=== PATIENT | female | born 1950 | race African-American/Black ===

== ENCOUNTER → 2019-07-12 | Outpatient (CLI) | payer MEDICARE, MEDICAID | END | disposition home or self-care (01) | LOC: RAD 12:42 | PROVIDERS: ATTEND Neurological Surgery | DX: R07.9 Chest pain, unspecified (principal) | CPT/HCPCS: 71045 ==

== ENCOUNTER 2019-07-22 05:23 | Inpatient (IN) | payer MEDICARE, MEDICAID ==
[2019-07-22] VITALS (52 sets, daily range): BP systolic 95–166; BP diastolic 46–88
[~2019-07-22] VITALS: Ht 157.5 cm; Wt 88.5 kg
[~2019-07-22 05:23] MED LIST: ALBU18HF2 IH; ATOR40TA70 PO; ATROV INH; CHLO25TA2 MT; HYDR-4001 PO; HYDR100T26 PO; LISI40TA4 PO; METF-414 PO; METH10TA7 PO
[2019-07-22] MEDS ORDERED: BACITRACIN 50,000 UNITS/VIAL ONE (06:16)
[2019-07-22] MEDS ORDERED: LIDOCAINE HCL/EPINEPHRINE 1%-EPI 1:100,000 20 ML VIAL ONE (06:16)
[2019-07-22] MEDS ORDERED: THROMBIN (BOVINE) 5000 UNITS/VIAL TOP ONE (06:16)
[2019-07-22 06:20] LABS: CLARITY URINE CLOUDY (CLEAR); COLOR URINE YELLOW (YELLOW); KETONES URINE NEGATIVE (NEGATIVE); LEUKOCYTE ESTERASE URINE TRACE (NEGATIVE); NITRITE URINE NEGATIVE (NEGATIVE); OCCULT BLOOD URINE NEGATIVE (NEGATIVE); PH URINE 7.5 (4.5-8.0); PROTEIN URINE TRACE (NEGATIVE); SPECIFIC GRAVITY URINE 1.009 (1.005-1.030); UROBILINOGEN URINE 0.2 E.U./dL (0.2-1.0)
[2019-07-22 06:26] LABS: BASOPHILS % 0.4 % (0.0-2.0); CHLORIDE 101 mEq/L (98-107); HEMATOCRIT. 41.4 % (36.0-48.0); HEMOGLOBIN. 13.5 g/dL (12.0-16.0); MEAN CORPUSCULAR HEMOGLOBIN 26.4 pg (28.0-32.0); MEAN CORPUSCULAR VOLUME 80.7 fL (81.0-99.0); MEAN PLATELET VOLUME 7.2 fl (7.4-10.4); MONOCYTES % 9.2 % (2.0-8.0); NEUTROPHILS % 55.4 % (40.0-76.0); PLATELET 335 x1000/uL (130-400); RED BLOOD CELL COUNT 5.13 mill/uL (4.2-5.4); RED CELL DISTRIBUTION WIDTH 13.9 % (11.6-14.6)
[2019-07-22 06:29] LABS: PARTIAL THROMBOPLASTIN TIME 27.5 sec (23.4-31.0)
[2019-07-22] MEDS ORDERED: ROCURONIUM BROMIDE 10MG/ML VIAL 5ML IV ONE (07:06)
[2019-07-22] MEDS ORDERED: FENTANYL CITRATE/PF 50MCG/ML 2ML VIAL ONE ×2 (07:06→09:21)
[2019-07-22] MEDS ORDERED: NEOSTIGMINE METHYLSULFATE 1MG/ML 10 ML VIAL ONE (07:06)
[2019-07-22] MEDS ORDERED: PROPOFOL 200MG/20ML VIAL IV ONE (07:07)
[2019-07-22] MEDS ORDERED: GLYCOPYRROLATE 0.2 MG/ML 2ML VIAL ONE ×2 (07:07→10:16)
[2019-07-22] MEDS ORDERED: MIDAZOLAM HCL 2 MG/2 ML VIAL ONE (07:07)
[2019-07-22] MEDS ORDERED: DEXAMETHASONE 4MG/ML 1ML VIAL ONE (07:09)
[2019-07-22] MEDS ORDERED: ONDANSETRON HCL 4MG/2ML INJ IV PRN ×2 (07:15→11:45)
[2019-07-22] MEDS ORDERED: HYDROMORPHONE HCL/PF 2MG/ML (OR) ONE (07:54)
[2019-07-22] MEDS ORDERED: LACTATED RINGERS 500 ML IV SCH (11:30)
[2019-07-22] MEDS: DEXT 5%/LACTATED RINGERS 1,000 ML IV SCH ×2 (11:37→20:01)
[2019-07-22] MEDS: NICARDIPINE 100 MG in SODIUM CHLORIDE 0.9% 60 ML IV PRN (11:45)
[2019-07-22] MEDS ORDERED: ONDANSETRON INJ IV PRN (11:45)
[2019-07-22] MEDS ORDERED: NALOXONE INJ IV PRN (11:45)
[2019-07-22] MEDS ORDERED: IPRATROPIUM/ALBUTEROL 0.5-3(2.5)MG/3ML NEB HHN PRN (11:45)
[2019-07-22] MEDS ORDERED: ACETAMINOPHEN 325MG TABLET PO PRN (11:45)
[2019-07-22] MEDS: DIPHENHYDRAMINE INJ IV PRN (11:52)
[2019-07-22] MEDS ORDERED: CEFAZOLIN SODIUM 1000MG/VIAL IV SCH (14:00)
[2019-07-22] MEDS: HYDROMORPHONE PCA 10MG/50ML IV PRN (14:11)
[2019-07-22] MEDS: CEFAZOLIN 1000MG PREMIX 50 ML IV SCH ×2 (14:13→22:08)
[2019-07-23] VITALS (103 sets, daily range): BP systolic 76–166; BP diastolic 41–129
[2019-07-23] MEDS: DEXT 5%/LACTATED RINGERS 1,000 ML IV SCH ×3 (03:30→17:54)
[2019-07-23] MEDS: CEFAZOLIN 1000MG PREMIX 50 ML IV SCH ×3 (05:56→21:19)
[2019-07-23 06:18] LABS: CHLORIDE 101 mEq/L (98-107)
[2019-07-23 06:21] LABS: BASOPHILS % 0.1 % (0.0-2.0); EOSINOPHILS % 0.1 % (0.0-5.0); HEMATOCRIT. 31.7 % (36.0-48.0); HEMOGLOBIN. 10.1 g/dL (12.0-16.0); LYMPHOCYTES % 14.9 % (20.0-50.0); MEAN CORPUSCULAR HEMOGLOBIN 25.8 pg (28.0-32.0); MEAN CORPUSCULAR VOLUME 80.9 fL (81.0-99.0); MEAN PLATELET VOLUME 7.3 fl (7.4-10.4); MONOCYTES % 11.1 % (2.0-8.0); NEUTROPHILS % 73.8 % (40.0-76.0); PLATELET 283 x1000/uL (130-400); RED BLOOD CELL COUNT 3.92 mill/uL (4.2-5.4); RED CELL DISTRIBUTION WIDTH 13.6 % (11.6-14.6)
[2019-07-23 06:27] LABS: HDL CHOLESTEROL 36 mg/dL (40-59); LDL CHOLESTEROL 83 mg/dL (5-100)
[2019-07-23] MEDS: HYDROMORPHONE HCL/PF 2MG/ML CPJ IV PRN ×5 (07:48→22:13)
[2019-07-23] MEDS ORDERED: SODIUM CHLORIDE 0.9% 500 ML IV SCH (08:30)
[2019-07-23] MEDS: NICARDIPINE 100 MG in SODIUM CHLORIDE 0.9% 60 ML IV PRN (08:59)
[2019-07-23] MEDS: POTASSIUM CHLORIDE 20MEQ/PACKET PO NR ×2 (12:15→13:19)
[2019-07-23] MEDS ORDERED: POTASSIUM CHLORIDE 20MEQ TABLET SR PO NR (17:40)
[2019-07-23] MEDS: HYDROMORPHONE PCA 10MG/50ML IV PRN (19:46)
[2019-07-23] MEDS: DIPHENHYDRAMINE INJ IV PRN (20:53)
[2019-07-23] MEDS: ATORVASTATIN CALCIUM 40MG TABLET PO SCH (20:53)
[2019-07-24] VITALS (77 sets, daily range): BP systolic 92–170; BP diastolic 38–120
[2019-07-24] MEDS: DIPHENHYDRAMINE INJ IV PRN ×2 (02:12→09:29)
[2019-07-24] MEDS: NICARDIPINE 100 MG in SODIUM CHLORIDE 0.9% 60 ML IV PRN ×2 (02:14→11:20)
[2019-07-24] MEDS: DEXT 5%/LACTATED RINGERS 1,000 ML IV SCH (02:14)
[2019-07-24] MEDS: HYDROMORPHONE HCL/PF 2MG/ML CPJ IV PRN ×5 (02:16→20:36)
[2019-07-24 05:47] LABS: BASOPHILS % 0.1 % (0.0-2.0); EOSINOPHILS % 0.7 % (0.0-5.0); HEMATOCRIT. 30.3 % (36.0-48.0); HEMOGLOBIN. 10.1 g/dL (12.0-16.0); LYMPHOCYTES % 17.8 % (20.0-50.0); MEAN CORPUSCULAR HEMOGLOBIN 26.5 pg (28.0-32.0); MEAN PLATELET VOLUME 7.6 fl (7.4-10.4); MONOCYTES % 11.2 % (2.0-8.0); NEUTROPHILS % 70.2 % (40.0-76.0); PLATELET 274 x1000/uL (130-400); RED BLOOD CELL COUNT 3.79 mill/uL (4.2-5.4); RED CELL DISTRIBUTION WIDTH 13.6 % (11.6-14.6)
[2019-07-24 05:56] LABS: CHLORIDE 99 mEq/L (98-107)
[2019-07-24] MEDS: CEFAZOLIN 1000MG PREMIX 50 ML IV SCH ×2 (06:06→15:35)
[2019-07-24] MEDS: HYDRALAZINE HCL 100MG TABLET PO SCH ×2 (10:54→21:00)
[2019-07-24] MEDS: LISINOPRIL 40MG TABLET PO SCH (10:55)
[2019-07-24] MEDS: ATORVASTATIN CALCIUM 40MG TABLET PO SCH (21:57)
[2019-07-25] VITALS: BP 124/56
[2019-07-25] MEDS: HYDROMORPHONE HCL/PF 2MG/ML CPJ IV PRN ×5 (01:10→21:13)
[2019-07-25] MEDS ORDERED: DEXTROSE 50% WATER 50ML SYRINGE IV PRN (03:00)
[2019-07-25 04:00] VITALS: BP 144/71
[2019-07-25] MEDS: BLOOD SUGAR DIAGNOSTIC STRIP TEST SCH ×4 (06:29→21:58)
[2019-07-25 07:24] LABS: CHLORIDE 99 mEq/L (98-107)
[2019-07-25 07:56] LABS: BASOPHILS % 0.2 % (0.0-2.0); EOSINOPHILS % 1.7 % (0.0-5.0); HEMATOCRIT. 27.5 % (36.0-48.0); HEMOGLOBIN. 9.1 g/dL (12.0-16.0); LYMPHOCYTES % 19.8 % (20.0-50.0); MEAN CORPUSCULAR HEMOGLOBIN 26.6 pg (28.0-32.0); MEAN CORPUSCULAR VOLUME 80.1 fL (81.0-99.0); MEAN PLATELET VOLUME 7.6 fl (7.4-10.4); MONOCYTES % 11.4 % (2.0-8.0); NEUTROPHILS % 66.9 % (40.0-76.0); PLATELET 257 x1000/uL (130-400); RED BLOOD CELL COUNT 3.43 mill/uL (4.2-5.4); RED CELL DISTRIBUTION WIDTH 13.4 % (11.6-14.6)
[2019-07-25 08:00] VITALS: BP 123/68
[2019-07-25] MEDS: LISINOPRIL 40MG TABLET PO SCH (09:29)
[2019-07-25] MEDS: HYDRALAZINE HCL 100MG TABLET PO SCH ×2 (09:29→21:19)
[2019-07-25] MEDS: INSULIN LISPRO 100 UNITS/ML SUBCUT SCH ×4 (09:58→21:00)
[2019-07-25] MEDS: DEXT 5%/LACTATED RINGERS 1,000 ML IV SCH (11:05)
[2019-07-25 12:00] VITALS: BP 136/71
[2019-07-25 16:00] VITALS: BP 153/76
[2019-07-25 20:00] VITALS: BP 160/69
[2019-07-25] MEDS: ATORVASTATIN CALCIUM 40MG TABLET PO SCH (21:14)
[2019-07-26] VITALS (7 sets, daily range): BP systolic 122–176; BP diastolic 64–88
[2019-07-26] MEDS: OXYCODONE HCL/ACETAMINOPHEN 5/325MG TABLET PO PRN ×5 (00:55→20:21)
[2019-07-26] MEDS: DEXT 5%/LACTATED RINGERS 1,000 ML IV SCH ×2 (06:27→13:11)
[2019-07-26 06:51] LABS: BASOPHILS % 0.2 % (0.0-2.0); EOSINOPHILS % 1.8 % (0.0-5.0); HEMATOCRIT. 28.9 % (36.0-48.0); HEMOGLOBIN. 9.6 g/dL (12.0-16.0); LYMPHOCYTES % 25.1 % (20.0-50.0); MEAN CORPUSCULAR HEMOGLOBIN 26.5 pg (28.0-32.0); MEAN CORPUSCULAR VOLUME 79.5 fL (81.0-99.0); MEAN PLATELET VOLUME 7.6 fl (7.4-10.4); MONOCYTES % 11.6 % (2.0-8.0); NEUTROPHILS % 61.3 % (40.0-76.0); PLATELET 293 x1000/uL (130-400); RED BLOOD CELL COUNT 3.64 mill/uL (4.2-5.4); RED CELL DISTRIBUTION WIDTH 13.2 % (11.6-14.6)
[2019-07-26 07:00] LABS: CHLORIDE 97 mEq/L (98-107)
[2019-07-26] MEDS: INSULIN LISPRO 100 UNITS/ML SUBCUT SCH ×4 (07:50→21:00)
[2019-07-26] MEDS: BLOOD SUGAR DIAGNOSTIC STRIP TEST SCH ×4 (07:56→21:00)
[2019-07-26] MEDS: LISINOPRIL 40MG TABLET PO SCH (09:03)
[2019-07-26] MEDS: HYDRALAZINE HCL 100MG TABLET PO SCH ×2 (09:04→20:05)
[2019-07-26] MEDS ORDERED: POTASSIUM CHLORIDE 20MEQ/PACKET PO NR (14:30)
[2019-07-26] MEDS: ATORVASTATIN CALCIUM 40MG TABLET PO SCH (20:05)
[2019-07-26] MEDS: HYDROMORPHONE HCL/PF 2MG/ML CPJ IV PRN (20:06)
[2019-07-27] VITALS: BP 150/100
[2019-07-27] MEDS: OXYCODONE HCL/ACETAMINOPHEN 5/325MG TABLET PO PRN ×4 (00:26→17:21)
[2019-07-27 04:00] VITALS: BP 148/82
[2019-07-27] MEDS: HYDROMORPHONE HCL/PF 2MG/ML CPJ IV PRN ×5 (04:10→22:15)
[2019-07-27] MEDS: BLOOD SUGAR DIAGNOSTIC STRIP TEST SCH ×4 (06:35→21:00)
[2019-07-27] MEDS: INSULIN LISPRO 100 UNITS/ML SUBCUT SCH ×4 (06:36→22:26)
[2019-07-27 08:00] VITALS: BP 128/66
[2019-07-27 08:30] LABS: BASOPHILS % 0.3 % (0.0-2.0); EOSINOPHILS % 1.9 % (0.0-5.0); HEMATOCRIT. 29.5 % (36.0-48.0); HEMOGLOBIN. 9.8 g/dL (12.0-16.0); MEAN CORPUSCULAR HEMOGLOBIN 26.3 pg (28.0-32.0); MEAN CORPUSCULAR VOLUME 79.5 fL (81.0-99.0); MEAN PLATELET VOLUME 7.5 fl (7.4-10.4); NEUTROPHILS % 58.8 % (40.0-76.0); PLATELET 357 x1000/uL (130-400); RED BLOOD CELL COUNT 3.72 mill/uL (4.2-5.4); RED CELL DISTRIBUTION WIDTH 13.5 % (11.6-14.6)
[2019-07-27 08:31] LABS: CHLORIDE 95 mEq/L (98-107)
[2019-07-27] MEDS: HYDRALAZINE HCL 100MG TABLET PO SCH ×2 (08:50→21:18)
[2019-07-27] MEDS: LISINOPRIL 40MG TABLET PO SCH (08:50)
[2019-07-27] MEDS: DEXT 5%/LACTATED RINGERS 1,000 ML IV SCH ×2 (08:56→18:55)
[2019-07-27 12:07] VITALS: BP 149/77
[2019-07-27] MEDS ORDERED: POTASSIUM CHLORIDE 20MEQ/PACKET PO NR (13:30)
[2019-07-27 16:07] VITALS: BP 125/60
[2019-07-27 20:00] VITALS: BP 154/80
[2019-07-27] MEDS: ATORVASTATIN CALCIUM 40MG TABLET PO SCH (21:18)
[2019-07-28] VITALS: BP 146/69
[2019-07-28] MEDS: HYDROMORPHONE HCL/PF 2MG/ML CPJ IV PRN ×8 (02:24→23:30)
[2019-07-28] MEDS: OXYCODONE HCL/ACETAMINOPHEN 5/325MG TABLET PO PRN ×4 (03:56→18:42)
[2019-07-28] MEDS: DEXT 5%/LACTATED RINGERS 1,000 ML IV SCH ×3 (03:57→17:43)
[2019-07-28 04:00] VITALS: BP 151/68
[2019-07-28 06:49] LABS: BASOPHILS % 0.3 % (0.0-2.0); HEMATOCRIT. 29.4 % (36.0-48.0); HEMOGLOBIN. 9.7 g/dL (12.0-16.0); LYMPHOCYTES % 22.7 % (20.0-50.0); MEAN CORPUSCULAR HEMOGLOBIN 26.3 pg (28.0-32.0); MEAN CORPUSCULAR VOLUME 79.9 fL (81.0-99.0); MEAN PLATELET VOLUME 7.3 fl (7.4-10.4); MONOCYTES % 12.4 % (2.0-8.0); NEUTROPHILS % 61.6 % (40.0-76.0); PLATELET 355 x1000/uL (130-400); RED BLOOD CELL COUNT 3.68 mill/uL (4.2-5.4); RED CELL DISTRIBUTION WIDTH 13.1 % (11.6-14.6)
[2019-07-28 07:06] LABS: CHLORIDE 97 mEq/L (98-107)
[2019-07-28 08:00] VITALS: BP 123/64
[2019-07-28] MEDS: INSULIN LISPRO 100 UNITS/ML SUBCUT SCH ×4 (08:10→20:41)
[2019-07-28] MEDS: BLOOD SUGAR DIAGNOSTIC STRIP TEST SCH ×4 (08:10→21:16)
[2019-07-28] MEDS: HYDRALAZINE HCL 100MG TABLET PO SCH ×2 (08:18→20:07)
[2019-07-28] MEDS: LISINOPRIL 40MG TABLET PO SCH (08:18)
[2019-07-28 12:00] VITALS: BP 114/74
[2019-07-28] MEDS: SIMETHICONE 80MG TABLET CHEW PO PRN (14:12)
[2019-07-28 16:00] VITALS: BP 169/78
[2019-07-28] MEDS ORDERED: DOCUSATE SODIUM 250MG CAPSULE PO NR (16:15)
[2019-07-28 20:00] VITALS: BP 171/91
[2019-07-28] MEDS: ATORVASTATIN CALCIUM 40MG TABLET PO SCH (20:07)
[2019-07-28] MEDS: CLONIDINE 0.1MG TABLET PO PRN (20:08)
[2019-07-29] VITALS: BP 115/83
[2019-07-29] MEDS: DEXT 5%/LACTATED RINGERS 1,000 ML IV SCH ×3 (03:21→21:23)
[2019-07-29] MEDS: HYDROMORPHONE HCL/PF 2MG/ML CPJ IV PRN ×6 (03:21→21:42)
[2019-07-29 04:00] VITALS: BP 123/72
[2019-07-29 06:59] LABS: HEMATOCRIT. 27.6 % (36.0-48.0); HEMOGLOBIN. 9.2 g/dL (12.0-16.0); MEAN CORPUSCULAR HEMOGLOBIN 26.6 pg (28.0-32.0); MEAN CORPUSCULAR VOLUME 79.7 fL (81.0-99.0); MEAN PLATELET VOLUME 7.2 fl (7.4-10.4); PLATELET 388 x1000/uL (130-400); RED BLOOD CELL COUNT 3.47 mill/uL (4.2-5.4); RED CELL DISTRIBUTION WIDTH 13.6 % (11.6-14.6)
[2019-07-29 07:24] LABS: CHLORIDE 96 mEq/L (98-107)
[2019-07-29] MEDS: BLOOD SUGAR DIAGNOSTIC STRIP TEST SCH ×4 (07:55→21:00)
[2019-07-29 08:00] VITALS: BP 159/70
[2019-07-29] MEDS: LISINOPRIL 40MG TABLET PO SCH (08:21)
[2019-07-29] MEDS: HYDRALAZINE HCL 100MG TABLET PO SCH ×2 (08:21→21:00)
[2019-07-29] MEDS: INSULIN LISPRO 100 UNITS/ML SUBCUT SCH ×4 (08:30→22:02)
[2019-07-29 11:31] LABS: PLATELET ESTIMATE NORMAL
[2019-07-29 12:00] VITALS: BP 115/58
[2019-07-29] MEDS: SIMETHICONE 80MG TABLET CHEW PO PRN (12:30)
[2019-07-29 16:00] VITALS: BP 116/57
[2019-07-29] MEDS ORDERED: BISACODYL 10MG SUPP PR PRN (18:30)
[2019-07-29 20:00] VITALS: BP 111/66
[2019-07-29] MEDS: ATORVASTATIN CALCIUM 40MG TABLET PO SCH (21:22)
[2019-07-30] VITALS: BP 132/61
[2019-07-30] MEDS: HYDROMORPHONE HCL/PF 2MG/ML CPJ IV PRN ×6 (00:55→16:55)
[2019-07-30 04:00] VITALS: BP 189/88
[2019-07-30] MEDS: DEXT 5%/LACTATED RINGERS 1,000 ML IV SCH ×2 (04:01→10:48)
[2019-07-30] MEDS: BLOOD SUGAR DIAGNOSTIC STRIP TEST SCH ×3 (07:03→17:43)
[2019-07-30 08:00] VITALS: BP 165/81
[2019-07-30] MEDS: HYDRALAZINE HCL 100MG TABLET PO SCH (08:52)
[2019-07-30] MEDS: LISINOPRIL 40MG TABLET PO SCH (08:52)
[2019-07-30] MEDS: INSULIN LISPRO 100 UNITS/ML SUBCUT SCH ×3 (09:33→17:43)
[2019-07-30 14:58] VITALS: BP 175/81
[2019-07-30] MEDS: CLONIDINE 0.1MG TABLET PO PRN (16:54)
[2019-07-30 16:55] VITALS: BP 175/81
== END 2019-07-30 18:30 | DRG 304 ==
LOC: OR 05:23 → MICUSO 05:24 → 6EST 07-24 19:10
PROVIDERS: ADMIT Neurological Surgery; ATTEND Neurological Surgery
PROC: 0SG1071 Fusion of 2 or more Lumbar Vertebral Joints with Autologous Tissue Substitute, Posterior Approach, Posterior Column, Open Approach (ICD-10-PCS; principal; 2019-07-22)
PROC: 01NB0ZZ Release Lumbar Nerve, Open Approach (ICD-10-PCS; 2019-07-22)
PROC: 0SP004Z Removal of Internal Fixation Device from Lumbar Vertebral Joint, Open Approach (ICD-10-PCS; 2019-07-22)
DX: M47.816 Spondylosis without myelopathy or radiculopathy, lumbar region (principal); I42.9 Cardiomyopathy, unspecified; G62.9 Polyneuropathy, unspecified; I11.9 Hypertensive heart disease without heart failure; E11.9 Type 2 diabetes mellitus without complications; D72.829 Elevated white blood cell count, unspecified; G89.29 Other chronic pain; M48.061 Spinal stenosis, lumbar region without neurogenic claudication; M43.16 Spondylolisthesis, lumbar region; I25.10 Atherosclerotic heart disease of native coronary artery without angina pectoris
CPT/HCPCS: 36415; 72100; 76000; 80048; 80053; 80061; 81003; 82962; 83036; 85025; 86850; 86900; 88300; 93970; 95925; 95926; 95928; 95929; 95940; 97110; 97116; 97162; 97166; 97530; 97535; C1713; C1893; J0690; J1100; J1170; J1200; J1815; J2250; J2405; J2704; J2710; J3010; J3490; J7040; J7050; J7121

== ENCOUNTER → 2020-05-26 | Outpatient (CLI) | payer MEDICARE, MEDICAID | END | disposition home or self-care (01) | LOC: MRI 10:43 | PROVIDERS: ATTEND Neurological Surgery | DX: M47.812 Spondylosis without myelopathy or radiculopathy, cervical region (principal); M48.02 Spinal stenosis, cervical region; M25.78 Osteophyte, vertebrae | CPT/HCPCS: 72141 ==

== ENCOUNTER → 2020-10-15 | Outpatient (CLI) | payer MEDICARE, MEDICAID ==
[~2020-10-15] MED LIST changes: +LISI40TA13 PO; -LISI40TA4 PO
== END | disposition home or self-care (01) ==
LOC: MRI 12:10
PROVIDERS: ATTEND Neurological Surgery
DX: M51.37 Other intervertebral disc degeneration, lumbosacral region (principal); M47.816 Spondylosis without myelopathy or radiculopathy, lumbar region; M48.07 Spinal stenosis, lumbosacral region; M50.222 Other cervical disc displacement at C5-C6 level; M48.02 Spinal stenosis, cervical region
CPT/HCPCS: 72141; 72148

== ENCOUNTER → 2020-11-20 | Outpatient (CLI) | payer MEDICARE, MEDICAID ==
[~2020-11-20] MED LIST changes: +AMLO10TA80 PO; +CHLO25TA2 PO; +HYDR-4135 PO; +IBUP-2030 PO; +TRAM50TA3 PO
== END | disposition home or self-care (01) ==
LOC: LAB 12:52
PROVIDERS: ATTEND Neurological Surgery
DX: Z01.812 Encounter for preprocedural laboratory examination (principal); Z20.822 Contact with and (suspected) exposure to COVID-19
CPT/HCPCS: 87426

== ENCOUNTER 2020-12-03 21:20 | Inpatient (IN) | payer MEDICARE, MEDICAID ==
[~2020-12-03] VITALS: Ht 160 cm; Wt 78.0 kg
[~2020-12-03 21:20] MED LIST changes: -CHLO25TA2 MT; -HYDR-4001 PO; -HYDR100T26 PO
[2020-12-03 21:30] VITALS: BP 143/72
[2020-12-03 21:45] VITALS: BP 143/72
[2020-12-03] MEDS ORDERED: GUAIFENESIN-DM 200MG-20MG/10ML UDC PO PRN (23:15)
[2020-12-03] MEDS ORDERED: IPRATROPIUM/ALBUTEROL 0.5-3(2.5)MG/3ML NEB HHN PRN (23:15)
[2020-12-03] MEDS ORDERED: ONDANSETRON HCL 4MG/2ML INJ IV PRN (23:15)
[2020-12-03] MEDS ORDERED: DEXTROSE 50% WATER 50ML SYRINGE IV PRN (23:15)
[2020-12-03] MEDS ORDERED: CLONIDINE 0.2MG TABLET PO PRN (23:15)
[2020-12-04] MEDS: HYDROCODONE/ACETAMINOPHEN 5/325MG TABLET PO PRN ×2 (00:28→05:57)
[2020-12-04] MEDS: IPRATROPIUM/ALBUTEROL 0.5-3(2.5)MG/3ML NEB HHN SCH (01:50)
[2020-12-04] MEDS: BLOOD SUGAR DIAGNOSTIC STRIP TEST SCH ×4 (05:58→21:16)
[2020-12-04] MEDS: INSULIN LISPRO 100 UNITS/ML SUBCUT SCH ×4 (07:00→21:15)
[2020-12-04] MEDS: CREON 36000 UNIT PO SCH ×3 (08:17→17:44)
[2020-12-04] MEDS: DOCUSATE SODIUM 100MG CAPSULE PO SCH ×2 (08:17→17:43)
[2020-12-04] MEDS: AMLODIPINE 10MG TABLET PO SCH (08:18)
[2020-12-04] MEDS: METHIMAZOLE 5MG TABLET PO SCH (08:18)
[2020-12-04] MEDS: HYDRALAZINE HCL 50MG TABLET PO SCH ×2 (08:19→20:52)
[2020-12-04] MEDS: LISINOPRIL 40MG TABLET PO SCH (08:20)
[2020-12-04] MEDS: LIDOCAINE 5% PATCH TOP SCH (08:20)
[2020-12-04 08:25] VITALS: BP 108/59
[2020-12-04] MEDS: HYDROCODONE/ACETAMINOPHEN 10/325MG TABLET PO PRN ×3 (10:59→23:49)
[2020-12-04 13:16] LABS: HEMATOCRIT 30.2 % (36.0-48.0); HEMOGLOBIN 10.1 g/dL (12.0-16.0); MEAN CORPUSCULAR HEMOGLOBIN 25.1 pg (28.0-32.0); MEAN CORPUSCULAR VOLUME 74.8 fL (81.0-99.0); PLATELET 433 x1000/uL (130-400); RED BLOOD CELL COUNT 4.03 mill/uL (4.2-5.4)
[2020-12-04 14:11] LABS: CHLORIDE 100 mEq/L (98-107)
[2020-12-04] MEDS: PANTOPRAZOLE 40MG DR TABLET PO SCH (14:50)
[2020-12-04] MEDS: TRAMADOL 50MG TABLET PO PRN (14:50)
[2020-12-04] MEDS: BISACODYL 5MG TABLET PO PRN (17:43)
[2020-12-04 20:00] VITALS: BP 120/54
[2020-12-04] MEDS: ATORVASTATIN CALCIUM 40MG TABLET PO SCH (20:52)
[2020-12-04] MEDS: POLYETHYLENE GLYCOL 3350 (17GM) 1 DOSE PACK PO SCH (21:00)
[2020-12-04] MEDS: INSULIN GLARGINE UD 100 UNITS/ML SYR SUBCUT SCH (21:16)
[2020-12-05] MEDS: PANTOPRAZOLE 40MG DR TABLET PO SCH (05:47)
[2020-12-05] MEDS: HYDROCODONE/ACETAMINOPHEN 10/325MG TABLET PO PRN ×2 (05:50→11:59)
[2020-12-05] MEDS: BLOOD SUGAR DIAGNOSTIC STRIP TEST SCH ×4 (05:50→20:31)
[2020-12-05] MEDS: INSULIN LISPRO 100 UNITS/ML SUBCUT SCH ×4 (06:38→22:00)
[2020-12-05] MEDS: IPRATROPIUM/ALBUTEROL 0.5-3(2.5)MG/3ML NEB HHN SCH ×2 (07:34→17:26)
[2020-12-05 07:59] VITALS: BP 84/45
[2020-12-05] MEDS: TRAMADOL 50MG TABLET PO PRN (08:45)
[2020-12-05] MEDS: DOCUSATE SODIUM 100MG CAPSULE PO SCH ×2 (08:48→16:34)
[2020-12-05] MEDS: LIDOCAINE 5% PATCH TOP SCH (08:49)
[2020-12-05] MEDS: METHIMAZOLE 5MG TABLET PO SCH (08:50)
[2020-12-05] MEDS: CREON 36000 UNIT PO SCH ×3 (08:51→16:34)
[2020-12-05] MEDS: HYDRALAZINE HCL 50MG TABLET PO SCH (08:57)
[2020-12-05] MEDS: LISINOPRIL 40MG TABLET PO SCH (08:58)
[2020-12-05] MEDS: AMLODIPINE 10MG TABLET PO SCH (08:59)
[2020-12-05] MEDS: HYDROCODONE/ACETAMINOPHEN 5/325MG TABLET PO PRN ×2 (16:46→21:00)
[2020-12-05 20:00] VITALS: BP 120/66
[2020-12-05] MEDS: ATORVASTATIN CALCIUM 40MG TABLET PO SCH (20:30)
[2020-12-05] MEDS: POLYETHYLENE GLYCOL 3350 (17GM) 1 DOSE PACK PO SCH (20:31)
[2020-12-05] MEDS: INSULIN GLARGINE UD 100 UNITS/ML SYR SUBCUT SCH (22:00)
[2020-12-06] MEDS: IPRATROPIUM/ALBUTEROL 0.5-3(2.5)MG/3ML NEB HHN SCH ×4 (01:30→21:06)
[2020-12-06] MEDS: HYDROCODONE/ACETAMINOPHEN 10/325MG TABLET PO PRN ×3 (01:57→18:59)
[2020-12-06] MEDS: PANTOPRAZOLE 40MG DR TABLET PO SCH (06:25)
[2020-12-06] MEDS: INSULIN LISPRO 100 UNITS/ML SUBCUT SCH ×4 (06:32→22:26)
[2020-12-06 08:00] VITALS: BP 113/47
[2020-12-06] MEDS: AMLODIPINE 10MG TABLET PO SCH (08:38)
[2020-12-06] MEDS: METHIMAZOLE 5MG TABLET PO SCH (08:38)
[2020-12-06] MEDS: DOCUSATE SODIUM 100MG CAPSULE PO SCH ×2 (08:38→16:01)
[2020-12-06] MEDS: LISINOPRIL 40MG TABLET PO SCH (08:39)
[2020-12-06] MEDS: LIDOCAINE 5% PATCH TOP SCH (08:39)
[2020-12-06] MEDS: CREON 36000 UNIT PO SCH ×3 (08:40→16:01)
[2020-12-06 09:14] LABS: BASOPHILS % 0.3 % (0.0-2.0); EOSINOPHILS % 3.9 % (0.0-5.0); HEMATOCRIT. 28.6 % (36.0-48.0); HEMOGLOBIN. 9.3 g/dL (12.0-16.0); LYMPHOCYTES % 28.8 % (20.0-50.0); MEAN CORPUSCULAR HEMOGLOBIN 24.9 pg (28.0-32.0); MEAN CORPUSCULAR VOLUME 76.2 fL (81.0-99.0); MEAN PLATELET VOLUME 6.9 fl (7.4-10.4); MONOCYTES % 10.8 % (2.0-8.0); NEUTROPHILS % 56.2 % (40.0-76.0); PLATELET 451 x1000/uL (130-400); RED BLOOD CELL COUNT 3.75 mill/uL (4.2-5.4); RED CELL DISTRIBUTION WIDTH 14.8 % (11.6-14.6)
[2020-12-06 09:22] LABS: CHLORIDE 102 mEq/L (98-107)
[2020-12-06 09:29] LABS: TOTAL IRON BINDING CAPACITY 290 ug/dL (250-450)
[2020-12-06 09:39] LABS: FOLIC ACID (FOLATE) SERUM 16.6 ng/mL (>5.38)
[2020-12-06] MEDS: BLOOD SUGAR DIAGNOSTIC STRIP TEST SCH ×3 (11:15→21:39)
[2020-12-06] MEDS: TRAMADOL 50MG TABLET PO PRN (12:19)
[2020-12-06] MEDS: HYDROCODONE/ACETAMINOPHEN 5/325MG TABLET PO PRN ×2 (14:03→23:19)
[2020-12-06] MEDS: FERROUS SULFATE 325MG TABLET PO SCH (16:01)
[2020-12-06 20:00] VITALS: BP 99/48
[2020-12-06] MEDS: POLYETHYLENE GLYCOL 3350 (17GM) 1 DOSE PACK PO SCH (21:00)
[2020-12-06] MEDS: ATORVASTATIN CALCIUM 40MG TABLET PO SCH (21:38)
[2020-12-06] MEDS: INSULIN GLARGINE UD 100 UNITS/ML SYR SUBCUT SCH (22:27)
[2020-12-07] MEDS: IPRATROPIUM/ALBUTEROL 0.5-3(2.5)MG/3ML NEB HHN SCH ×4 (01:05→22:24)
[2020-12-07] MEDS: HYDROCODONE/ACETAMINOPHEN 10/325MG TABLET PO PRN ×3 (04:17→20:09)
[2020-12-07] MEDS: PANTOPRAZOLE 40MG DR TABLET PO SCH (06:54)
[2020-12-07] MEDS: BLOOD SUGAR DIAGNOSTIC STRIP TEST SCH ×4 (07:19→20:19)
[2020-12-07] MEDS: INSULIN LISPRO 100 UNITS/ML SUBCUT SCH ×4 (07:38→17:55)
[2020-12-07 08:00] VITALS: BP 125/47
[2020-12-07] MEDS: AMLODIPINE 10MG TABLET PO SCH (08:24)
[2020-12-07] MEDS: LISINOPRIL 40MG TABLET PO SCH (08:24)
[2020-12-07] MEDS: METHIMAZOLE 5MG TABLET PO SCH (08:24)
[2020-12-07] MEDS: DOCUSATE SODIUM 100MG CAPSULE PO SCH ×2 (08:25→16:47)
[2020-12-07] MEDS: FERROUS SULFATE 325MG TABLET PO SCH ×3 (08:25→16:47)
[2020-12-07] MEDS: CREON 36000 UNIT PO SCH ×3 (08:25→16:46)
[2020-12-07] MEDS: LIDOCAINE 5% PATCH TOP SCH (08:25)
[2020-12-07] MEDS: ASCORBIC ACID 500 MG TABLET PO SCH (08:25)
[2020-12-07] MEDS: HYDROCODONE/ACETAMINOPHEN 5/325MG TABLET PO PRN (09:34)
[2020-12-07 09:36] LABS: T4 FREE 1.16 ng/dL (0.76-1.46)
[2020-12-07] MEDS ORDERED: DEXTROSE 50% WATER 50ML SYRINGE IV PRN (12:15)
[2020-12-07] MEDS ORDERED: INSULIN REGULAR HUMAN (LOW DOSE) 100 UNITS/ML 3ML VIAL SUBCUT SCH (13:00)
[2020-12-07] MEDS ORDERED: INSULIN REGULAR HUMAN (CUSTOM DOSE) 100 UNITS/ML 3ML VIAL SUBCUT SCH (13:00)
[2020-12-07] MEDS ORDERED: INSULIN LISPRO (MEDIUM DOSE) 100 UNITS/ML SUBCUT SCH (13:00)
[2020-12-07] MEDS ORDERED: INSULIN LISPRO (HIGH DOSE) 100 UNITS/ML SUBCUT SCH (13:00)
[2020-12-07] MEDS ORDERED: INSULIN REGULAR HUMAN (HIGH DOSE) 100 UNITS/ML 3ML VIAL SUBCUT SCH (13:00)
[2020-12-07] MEDS ORDERED: INSULIN LISPRO (CUSTOM DOSE) 100 UNITS/ML SUBCUT SCH (13:00)
[2020-12-07] MEDS ORDERED: INSULIN LISPRO (LOW DOSE) 100 UNITS/ML SUBCUT SCH (13:00)
[2020-12-07] MEDS ORDERED: INSULIN LISPRO (PRANDIAL)100 UNITS/ML SUBCUT SCH (13:00)
[2020-12-07] MEDS ORDERED: INSULIN LISPRO 100 UNITS/ML SUBCUT SCH (13:00)
[2020-12-07] MEDS ORDERED: INSULIN REGULAR HUMAN (MEDIUM DOSE) 100 UNITS/ML 3ML VIAL SUBCUT SCH (13:00)
[2020-12-07] MEDS: INSULIN LISPRO (LOW DOSE) 100 UNITS/ML SUBCUT SCH ×2 (13:21→17:54)
[2020-12-07] MEDS ORDERED: BLOOD SUGAR DIAGNOSTIC STRIP TEST SCH (17:00)
[2020-12-07 20:00] VITALS: BP 113/57
[2020-12-07] MEDS: POLYETHYLENE GLYCOL 3350 (17GM) 1 DOSE PACK PO SCH (20:19)
[2020-12-07] MEDS: ATORVASTATIN CALCIUM 40MG TABLET PO SCH (20:19)
[2020-12-07] MEDS: ONDANSETRON HCL 4MG TABLET PO PRN (20:19)
[2020-12-07] MEDS: INSULIN GLARGINE UD 100 UNITS/ML SYR SUBCUT SCH (22:00)
[2020-12-07] MEDS ORDERED: INSULIN GLARGINE UD 100 UNITS/ML SYR SUBCUT SCH (22:00)
[2020-12-08] MEDS: HYDROCODONE/ACETAMINOPHEN 10/325MG TABLET PO PRN ×3 (02:24→16:31)
[2020-12-08] MEDS: IPRATROPIUM/ALBUTEROL 0.5-3(2.5)MG/3ML NEB HHN SCH ×4 (02:32→21:58)
[2020-12-08] MEDS: PANTOPRAZOLE 40MG DR TABLET PO SCH (05:43)
[2020-12-08] MEDS: BLOOD SUGAR DIAGNOSTIC STRIP TEST SCH ×4 (05:45→21:51)
[2020-12-08] MEDS: TRAMADOL 50MG TABLET PO PRN ×3 (05:56→21:58)
[2020-12-08] MEDS: INSULIN LISPRO 100 UNITS/ML SUBCUT SCH ×3 (07:33→18:06)
[2020-12-08] MEDS: INSULIN LISPRO (LOW DOSE) 100 UNITS/ML SUBCUT SCH ×3 (07:34→18:06)
[2020-12-08 08:00] VITALS: BP 117/61
[2020-12-08] MEDS: ASCORBIC ACID 500 MG TABLET PO SCH (08:26)
[2020-12-08] MEDS: LISINOPRIL 40MG TABLET PO SCH (08:27)
[2020-12-08] MEDS: FERROUS SULFATE 325MG TABLET PO SCH ×3 (08:27→17:00)
[2020-12-08] MEDS: METHIMAZOLE 10MG TABLET PO SCH (08:28)
[2020-12-08] MEDS: AMLODIPINE 10MG TABLET PO SCH (08:29)
[2020-12-08] MEDS: LIDOCAINE 5% PATCH TOP SCH (08:31)
[2020-12-08] MEDS: CREON 36000 UNIT PO SCH ×3 (08:34→18:03)
[2020-12-08] MEDS: DOCUSATE SODIUM 100MG CAPSULE PO SCH ×2 (08:41→17:00)
[2020-12-08 20:00] VITALS: BP 112/60
[2020-12-08] MEDS: ATORVASTATIN CALCIUM 40MG TABLET PO SCH (21:50)
[2020-12-08] MEDS: FAMOTIDINE 20MG TABLET PO SCH (21:50)
[2020-12-08] MEDS: POLYETHYLENE GLYCOL 3350 (17GM) 1 DOSE PACK PO SCH (21:51)
[2020-12-08] MEDS: INSULIN GLARGINE UD 100 UNITS/ML SYR SUBCUT SCH (22:28)
[2020-12-09] MEDS: HYDROCODONE/ACETAMINOPHEN 10/325MG TABLET PO PRN ×4 (00:17→21:31)
[2020-12-09] MEDS: IPRATROPIUM/ALBUTEROL 0.5-3(2.5)MG/3ML NEB HHN SCH ×4 (02:56→21:19)
[2020-12-09] MEDS: BLOOD SUGAR DIAGNOSTIC STRIP TEST SCH ×4 (05:53→21:29)
[2020-12-09] MEDS: FAMOTIDINE 20MG TABLET PO SCH ×2 (06:11→21:30)
[2020-12-09] MEDS: INSULIN LISPRO 100 UNITS/ML SUBCUT SCH ×3 (06:45→17:37)
[2020-12-09] MEDS: INSULIN LISPRO (LOW DOSE) 100 UNITS/ML SUBCUT SCH ×3 (07:09→17:38)
[2020-12-09 08:00] VITALS: BP 108/57
[2020-12-09] MEDS: LISINOPRIL 40MG TABLET PO SCH (09:00)
[2020-12-09] MEDS: AMLODIPINE 10MG TABLET PO SCH (09:00)
[2020-12-09] MEDS: ASCORBIC ACID 500 MG TABLET PO SCH (09:20)
[2020-12-09] MEDS: FERROUS SULFATE 325MG TABLET PO SCH ×3 (09:20→17:00)
[2020-12-09] MEDS: LIDOCAINE 5% PATCH TOP SCH (09:22)
[2020-12-09] MEDS: CREON 36000 UNIT PO SCH ×3 (09:28→17:42)
[2020-12-09] MEDS: DOCUSATE SODIUM 100MG CAPSULE PO SCH ×2 (09:29→17:00)
[2020-12-09] MEDS: METHIMAZOLE 10MG TABLET PO SCH (09:29)
[2020-12-09] MEDS: TRAMADOL 50MG TABLET PO PRN (10:47)
[2020-12-09] MEDS: ONDANSETRON HCL 4MG TABLET PO PRN (11:35)
[2020-12-09] MEDS: POLYETHYLENE GLYCOL 3350 (17GM) 1 DOSE PACK PO SCH (21:00)
[2020-12-09] MEDS: ATORVASTATIN CALCIUM 40MG TABLET PO SCH (21:30)
[2020-12-09] MEDS: INSULIN GLARGINE UD 100 UNITS/ML SYR SUBCUT SCH (21:31)
[2020-12-10] MEDS: IPRATROPIUM/ALBUTEROL 0.5-3(2.5)MG/3ML NEB HHN SCH ×4 (01:25→21:30)
[2020-12-10] MEDS: HYDROCODONE/ACETAMINOPHEN 5/325MG TABLET PO PRN (02:00)
[2020-12-10] MEDS: BLOOD SUGAR DIAGNOSTIC STRIP TEST SCH ×4 (06:27→21:00)
[2020-12-10] MEDS: FAMOTIDINE 20MG TABLET PO SCH ×2 (06:46→20:58)
[2020-12-10] MEDS: INSULIN LISPRO (LOW DOSE) 100 UNITS/ML SUBCUT SCH ×3 (07:08→17:38)
[2020-12-10] MEDS: INSULIN LISPRO 100 UNITS/ML SUBCUT SCH ×3 (07:09→17:40)
[2020-12-10 07:18] LABS: BASOPHILS % 0.6 % (0.0-2.0); EOSINOPHILS % 4.8 % (0.0-5.0); HEMATOCRIT. 26.6 % (36.0-48.0); HEMOGLOBIN. 8.7 g/dL (12.0-16.0); LYMPHOCYTES % 38.9 % (20.0-50.0); MEAN CORPUSCULAR HEMOGLOBIN 24.9 pg (28.0-32.0); MEAN CORPUSCULAR VOLUME 75.7 fL (81.0-99.0); MEAN PLATELET VOLUME 6.9 fl (7.4-10.4); MONOCYTES % 10.6 % (2.0-8.0); NEUTROPHILS % 45.1 % (40.0-76.0); PLATELET 417 x1000/uL (130-400); RED BLOOD CELL COUNT 3.52 mill/uL (4.2-5.4); RED CELL DISTRIBUTION WIDTH 14.8 % (11.6-14.6)
[2020-12-10] MEDS: DOCUSATE SODIUM 100MG CAPSULE PO SCH ×2 (08:40→17:25)
[2020-12-10] MEDS: FERROUS SULFATE 325MG TABLET PO SCH ×3 (08:40→17:25)
[2020-12-10] MEDS: ASCORBIC ACID 500 MG TABLET PO SCH (08:43)
[2020-12-10] MEDS: AMLODIPINE 10MG TABLET PO SCH (08:43)
[2020-12-10] MEDS: METHIMAZOLE 10MG TABLET PO SCH (08:43)
[2020-12-10] MEDS: LISINOPRIL 40MG TABLET PO SCH (08:44)
[2020-12-10] MEDS: BISACODYL 5MG TABLET PO PRN (08:45)
[2020-12-10] MEDS: HYDROCODONE/ACETAMINOPHEN 10/325MG TABLET PO PRN ×3 (08:47→21:00)
[2020-12-10] MEDS: LIDOCAINE 5% PATCH TOP SCH (08:52)
[2020-12-10] MEDS: CREON 36000 UNIT PO SCH ×3 (09:05→17:41)
[2020-12-10] MEDS: ONDANSETRON HCL 4MG TABLET PO PRN (10:47)
[2020-12-10 20:00] VITALS: BP_SYST 119; BP_SYST 126; BP_DIAS 56; BP_DIAS 66
[2020-12-10] MEDS: ATORVASTATIN CALCIUM 40MG TABLET PO SCH (20:58)
[2020-12-10] MEDS: POLYETHYLENE GLYCOL 3350 (17GM) 1 DOSE PACK PO SCH (21:16)
[2020-12-10] MEDS: INSULIN GLARGINE UD 100 UNITS/ML SYR SUBCUT SCH (21:25)
[2020-12-11] MEDS: HYDROCODONE/ACETAMINOPHEN 5/325MG TABLET PO PRN ×3 (00:42→18:47)
[2020-12-11] MEDS: IPRATROPIUM/ALBUTEROL 0.5-3(2.5)MG/3ML NEB HHN SCH ×3 (02:00→14:32)
[2020-12-11] MEDS: HYDROCODONE/ACETAMINOPHEN 10/325MG TABLET PO PRN ×4 (03:05→23:11)
[2020-12-11] MEDS: BLOOD SUGAR DIAGNOSTIC STRIP TEST SCH ×4 (06:32→21:24)
[2020-12-11] MEDS: INSULIN LISPRO (LOW DOSE) 100 UNITS/ML SUBCUT SCH ×3 (06:33→17:59)
[2020-12-11] MEDS: INSULIN LISPRO 100 UNITS/ML SUBCUT SCH ×3 (06:57→17:59)
[2020-12-11 08:00] VITALS: BP 116/60
[2020-12-11 08:17] VITALS: BP 116/60
[2020-12-11] MEDS: FAMOTIDINE 20MG TABLET PO SCH ×2 (08:18→21:24)
[2020-12-11] MEDS: FERROUS SULFATE 325MG TABLET PO SCH ×5 (08:18→17:00)
[2020-12-11] MEDS: METHIMAZOLE 10MG TABLET PO SCH (08:18)
[2020-12-11] MEDS: DOCUSATE SODIUM 100MG CAPSULE PO SCH ×2 (08:18→17:00)
[2020-12-11] MEDS: ASCORBIC ACID 500 MG TABLET PO SCH (08:18)
[2020-12-11] MEDS: CREON 36000 UNIT PO SCH ×3 (08:18→17:11)
[2020-12-11] MEDS: AMLODIPINE 10MG TABLET PO SCH (08:19)
[2020-12-11] MEDS: LISINOPRIL 40MG TABLET PO SCH (08:19)
[2020-12-11] MEDS: LIDOCAINE 5% PATCH TOP SCH (08:20)
[2020-12-11] MEDS: ONDANSETRON HCL 4MG TABLET PO PRN (08:23)
[2020-12-11] MEDS ORDERED: LIDO700A30 TOP (10:09)
[2020-12-11] MEDS ORDERED: FERR325T23 PO (10:09)
[2020-12-11] MEDS ORDERED: CHLO25TA2 PO (10:09)
[2020-12-11] MEDS ORDERED: INSLIS SUBCUT (10:09)
[2020-12-11] MEDS ORDERED: FAMO20TA8 PO (10:09)
[2020-12-11] MEDS ORDERED: METH10TA7 PO (10:09)
[2020-12-11] MEDS ORDERED: LISI40TA13 PO (10:09)
[2020-12-11] MEDS ORDERED: AMLO10TA80 PO (10:09)
[2020-12-11] MEDS ORDERED: ATROV INH (10:09)
[2020-12-11] MEDS ORDERED: ASCO500T20 PO (10:09)
[2020-12-11] MEDS ORDERED: LIP40 PO (10:09)
[2020-12-11] MEDS ORDERED: ALBU18HF2 IH (10:09)
[2020-12-11] MEDS ORDERED: LANTUSUD SUBCUT (10:09)
[2020-12-11 13:07] LABS: 25-HYDROXY VITAMIN D3 16 ng/mL (.)
[2020-12-11] MEDS ORDERED: IPRATROPIUM/ALBUTEROL 0.5-3(2.5)MG/3ML NEB HHN PRN (18:30)
[2020-12-11 20:00] VITALS: BP 126/70
[2020-12-11] MEDS: POLYETHYLENE GLYCOL 3350 (17GM) 1 DOSE PACK PO SCH (21:00)
[2020-12-11] MEDS: ATORVASTATIN CALCIUM 40MG TABLET PO SCH (21:24)
[2020-12-11] MEDS: INSULIN GLARGINE UD 100 UNITS/ML SYR SUBCUT SCH (21:28)
[2020-12-12] MEDS: HYDROCODONE/ACETAMINOPHEN 5/325MG TABLET PO PRN ×2 (03:22→12:49)
[2020-12-12] MEDS: INSULIN LISPRO (LOW DOSE) 100 UNITS/ML SUBCUT SCH ×3 (06:13→16:33)
[2020-12-12] MEDS: BLOOD SUGAR DIAGNOSTIC STRIP TEST SCH ×3 (06:13→16:33)
[2020-12-12] MEDS: INSULIN LISPRO 100 UNITS/ML SUBCUT SCH ×2 (06:55→12:40)
[2020-12-12 07:53] VITALS: BP 104/43
[2020-12-12] MEDS: ASCORBIC ACID 500 MG TABLET PO SCH (08:13)
[2020-12-12] MEDS: FERROUS SULFATE 325MG TABLET PO SCH ×5 (08:13→16:33)
[2020-12-12] MEDS: DOCUSATE SODIUM 100MG CAPSULE PO SCH ×2 (08:13→16:32)
[2020-12-12] MEDS: METHIMAZOLE 10MG TABLET PO SCH (08:13)
[2020-12-12] MEDS: HYDROCODONE/ACETAMINOPHEN 10/325MG TABLET PO PRN (08:13)
[2020-12-12] MEDS: FAMOTIDINE 20MG TABLET PO SCH (08:14)
[2020-12-12] MEDS: CREON 36000 UNIT PO SCH ×3 (08:15→16:33)
[2020-12-12] MEDS: LIDOCAINE 5% PATCH TOP SCH (08:16)
[2020-12-12] MEDS: AMLODIPINE 10MG TABLET PO SCH (08:16)
[2020-12-12] MEDS: LISINOPRIL 40MG TABLET PO SCH (08:16)
[2020-12-12] MEDS ORDERED: ERGOCALCIFEROL 50000UNITS CAPSULE PO SCH (11:30)
[2020-12-12 12:48] VITALS: BP 125/60
[2020-12-12 15:53] VITALS: BP 104/43
== END 2020-12-12 17:17 | disposition home health service (06) | DRG 347 ==
PROVIDERS: ADMIT Physical Medicine & Rehabilitation Spinal Cord Injury Medicine; ATTEND Internal Medicine
DX: M47.12 Other spondylosis with myelopathy, cervical region (principal); G82.50 Quadriplegia, unspecified; E11.65 Type 2 diabetes mellitus with hyperglycemia; D64.9 Anemia, unspecified; E87.1 Hypo-osmolality and hyponatremia; K86.1 Other chronic pancreatitis; R13.10 Dysphagia, unspecified; E11.9 Type 2 diabetes mellitus without complications; E05.90 Thyrotoxicosis, unspecified without thyrotoxic crisis or storm; E61.1 Iron deficiency; M75.102 Unspecified rotator cuff tear or rupture of left shoulder, not specified as traumatic; G89.4 Chronic pain syndrome; I10 Essential (primary) hypertension; E66.9 Obesity, unspecified; E78.00 Pure hypercholesterolemia, unspecified; F09 Unspecified mental disorder due to known physiological condition; F39 Unspecified mood [affective] disorder; R26.81 Unsteadiness on feet; M48.02 Spinal stenosis, cervical region; Z79.84 Long term (current) use of oral hypoglycemic drugs; Z82.49 Family history of ischemic heart disease and other diseases of the circulatory system; Z87.891 Personal history of nicotine dependence; I25.2 Old myocardial infarction; Z90.49 Acquired absence of other specified parts of digestive tract; Z90.710 Acquired absence of both cervix and uterus; Z68.30 Body mass index [BMI] 30.0-30.9, adult
CPT/HCPCS: 36415; 80048; 80053; 82306; 82607; 82728; 82746; 82962; 83540; 83550; 84134; 84439; 84443; 84481; 85025; 85027; 92610; 93970; 94640; 97110; 97116; 97162; 97166; 97530; 97535; J1815; J2405; Q0162

== ENCOUNTER → 2021-03-15 | Outpatient (CLI) | payer MEDICARE, MEDICAID ==
[~2021-03-15] MED LIST changes: +ASCO500T20 PO; -ATOR40TA70 PO; +FAMO20TA8 PO; +FERR325T23 PO; -HYDR-4135 PO; +INSLIS SUBCUT; +LANTUSUD SUBCUT; +LIDO700A30 TOP; +LIP40 PO; -METF-414 PO
== END | disposition home or self-care (01) ==
LOC: RAD 11:35
PROVIDERS: ATTEND Neurological Surgery
DX: M47.812 Spondylosis without myelopathy or radiculopathy, cervical region (principal); M50.31 Other cervical disc degeneration, high cervical region; M25.78 Osteophyte, vertebrae; Z98.1 Arthrodesis status
CPT/HCPCS: 72052

== ENCOUNTER 2021-03-30 10:59 | Emergency (ER) | payer MEDICARE, MEDICAID ==
[~2021-03-30] VITALS: Ht 160 cm; Wt 76.0 kg
[2021-03-30] MEDS ORDERED: KETOROLAC 60MG/2ML VIAL IM ONE (12:00)
[2021-03-30] MEDS ORDERED: TRAM50TA3 PO (12:10)
[2021-03-30 12:30] VITALS: BP 137/82
== END 2021-03-30 13:37 | disposition home or self-care (01) ==
LOC: ER 10:59
DX: G89.21 Chronic pain due to trauma (principal); M25.512 Pain in left shoulder; I10 Essential (primary) hypertension; E78.00 Pure hypercholesterolemia, unspecified; E11.9 Type 2 diabetes mellitus without complications; Z88.5 Allergy status to narcotic agent; Z79.899 Other long term (current) drug therapy; Z90.49 Acquired absence of other specified parts of digestive tract; Z98.890 Other specified postprocedural states
CPT/HCPCS: 96372; 99283; J1885

== ENCOUNTER 2021-04-13 12:16 | Emergency (ER) | payer MEDICARE, MEDICAID ==
[~2021-04-13] VITALS: Ht 160 cm; Wt 81.0 kg
[2021-04-13] MEDS ORDERED: METHOCARBAMOL 500MG TABLET PO ONE (15:00)
[2021-04-13] MEDS ORDERED: IBUPROFEN 600MG TABLET PO ONE (15:00)
[2021-04-13] MEDS ORDERED: IBUP-2029 MT (15:07)
[2021-04-13] MEDS ORDERED: METH-653 MT (15:07)
[2021-04-13 15:08] VITALS: BP 157/82
== END 2021-04-13 15:22 | disposition home or self-care (01) ==
LOC: ER 12:16
DX: S49.92XA Unspecified injury of left shoulder and upper arm, initial encounter (principal); E78.00 Pure hypercholesterolemia, unspecified; F17.200 Nicotine dependence, unspecified, uncomplicated; I10 Essential (primary) hypertension; Z11.9 Encounter for screening for infectious and parasitic diseases, unspecified; Z88.5 Allergy status to narcotic agent; Z79.899 Other long term (current) drug therapy; Z79.4 Long term (current) use of insulin; Z90.49 Acquired absence of other specified parts of digestive tract; Z98.890 Other specified postprocedural states; X58.XXXA Exposure to other specified factors, initial encounter; Y93.89 Activity, other specified; Y92.89 Other specified places as the place of occurrence of the external cause; Y99.8 Other external cause status
CPT/HCPCS: 99283

== ENCOUNTER 2021-05-07 17:47 | Inpatient (IN) | payer MEDICARE, MEDICAID ==
[~2021-05-07] VITALS: Ht 160 cm; Wt 82.6 kg
[~2021-05-07 17:47] MED LIST changes: +IBUP-2029 MT; +METH-653 MT
[2021-05-07] MEDS ORDERED: MAGNESIUM/ALUMINUM HYDROXIDE/SIMETHICONE 30ML UDC PO STA (18:11)
[2021-05-07] MEDS ORDERED: ONDANSETRON HCL 4MG/2ML INJ IV STA (18:11)
[2021-05-07] MEDS ORDERED: VISCOUS LIDOCAINE 2% 15 ML UDC PO STA (18:11)
[2021-05-07] MEDS ORDERED: FAMOTIDINE 20MG/2ML VIAL IV STA (18:11)
[2021-05-07 18:39] LABS: BASOPHILS % 0.4 % (0.0-2.0); HEMATOCRIT. 37.4 % (36.0-48.0); HEMOGLOBIN. 12.1 g/dL (12.0-16.0); LYMPHOCYTES % 35.9 % (20.0-50.0); MEAN CORPUSCULAR HEMOGLOBIN 24.8 pg (28.0-32.0); MEAN CORPUSCULAR VOLUME 76.8 fL (81.0-99.0); MONOCYTES % 9.4 % (2.0-8.0); NEUTROPHILS % 50.3 % (40.0-76.0); RED BLOOD CELL COUNT 4.88 mill/uL (4.2-5.4); RED CELL DISTRIBUTION WIDTH 14.3 % (11.6-14.6)
[2021-05-07 18:47] LABS: CHLORIDE 102 mEq/L (98-107)
[2021-05-07 18:51] LABS: ETHANOL BLOOD < 10 mg/dL
[2021-05-07] MEDS ORDERED: ONDANSETRON 4MG ODT PO ONE (19:00)
[2021-05-07] MEDS ORDERED: FAMOTIDINE 20MG TABLET PO ONE (19:00)
[2021-05-07 19:04] LABS: PLATELET 406 x1000/uL (130-400)
[2021-05-07 19:05] LABS: PLATELET ESTIMATE SLIGHTLY INCREASED
[2021-05-07 19:37] LABS: PROTHROMBIN TIME 10.5 sec (9.6-11.0)
[2021-05-07 23:05] LABS: HEPATITIS B SURFACE ANTIGEN NEGATIVE
[2021-05-08] VITALS (7 sets, daily range): BP systolic 112–156; BP diastolic 57–81
[2021-05-08] MEDS ORDERED: GABA800T97 PO (02:40)
[2021-05-08] MEDS ORDERED: HYDR-4135 PO (02:40)
[2021-05-08] MEDS ORDERED: ASPI-1497 PO (02:40)
[2021-05-08] MEDS ORDERED: METF-416 PO (02:40)
[2021-05-08] MEDS ORDERED: IBUPROFEN 800MG TABLET PO PRN (03:30)
[2021-05-08] MEDS ORDERED: CLONIDINE 0.2MG TABLET PO PRN (03:30)
[2021-05-08] MEDS ORDERED: ONDANSETRON HCL 4MG/2ML INJ IV PRN (03:30)
[2021-05-08] MEDS ORDERED: DEXTROSE 50% WATER 50ML SYRINGE IV PRN (03:30)
[2021-05-08] MEDS ORDERED: GABAPENTIN 400MG CAPSULE PO PRN (03:30)
[2021-05-08] MEDS ORDERED: NALOXONE HCL 0.4MG/ML VIAL IV PRN (04:00)
[2021-05-08] MEDS: MORPHINE SULFATE 2 MG/ML CPJ (NOT FOR IM USE) IV PRN ×5 (04:12→21:30)
[2021-05-08] MEDS: SODIUM CHLORIDE 0.9% 1,000 ML IV SCH (04:35)
[2021-05-08] MEDS: BLOOD SUGAR DIAGNOSTIC STRIP TEST SCH ×4 (06:40→21:30)
[2021-05-08] MEDS: INSULIN LISPRO 100 UNITS/ML SUBCUT SCH ×4 (06:40→21:00)
[2021-05-08 08:11] LABS: CLARITY URINE CLEAR (CLEAR); COLOR URINE YELLOW (YELLOW); KETONES URINE NEGATIVE (NEGATIVE); LEUKOCYTE ESTERASE URINE NEGATIVE (NEGATIVE); NITRITE URINE NEGATIVE (NEGATIVE); OCCULT BLOOD URINE NEGATIVE (NEGATIVE); PH URINE 5.5 (4.5-8.0); PROTEIN URINE NEGATIVE (NEGATIVE); SPECIFIC GRAVITY URINE 1.013 (1.005-1.030); UROBILINOGEN URINE 0.2 E.U./dL (0.2-1.0)
[2021-05-08 08:20] LABS: *AMPHETAMINES SCREEN URINE NEGATIVE (NEGATIVE); *BARBITURATES SCREEN URINE NEGATIVE (NEGATIVE); *BENZODIAZEPINES SCREEN URINE NEGATIVE (NEGATIVE); *COCAINE SCREEN URINE NEGATIVE (NEGATIVE)
[2021-05-08 08:21] LABS: CANNABINOID URINE SCREEN NEGATIVE (NEGATIVE); METHADONE URINE SCREEN NEGATIVE (NEGATIVE); OPIATES URINE SCREEN PRESUMTIVE POSITIVE (NEGATIVE); PHENCYCLIDINE URINE SCREEN NEGATIVE (NEGATIVE)
[2021-05-08] MEDS: ASPIRIN 81MG EC TABLET PO SCH (09:07)
[2021-05-08] MEDS: LISINOPRIL 40MG TABLET PO SCH (09:07)
[2021-05-08] MEDS: HYDRALAZINE HCL 50MG TABLET PO SCH ×2 (09:08→21:41)
[2021-05-08] MEDS: AMLODIPINE 10MG TABLET PO SCH (09:08)
[2021-05-08] MEDS: METHIMAZOLE 10MG TABLET PO SCH (09:15)
[2021-05-08] MEDS: ATORVASTATIN CALCIUM 40MG TABLET PO SCH (21:41)
[2021-05-08] MEDS: DIPHENHYDRAMINE 50MG/ML VIAL IV PRN (23:19)
[2021-05-09] VITALS: BP 94/53
[2021-05-09] MEDS: MORPHINE SULFATE 2 MG/ML CPJ (NOT FOR IM USE) IV PRN ×5 (02:21→23:58)
[2021-05-09 04:00] VITALS: BP 118/67
[2021-05-09] MEDS: SODIUM CHLORIDE 0.9% 1,000 ML IV SCH ×2 (04:47→16:11)
[2021-05-09] MEDS: INSULIN LISPRO 100 UNITS/ML SUBCUT SCH ×4 (06:43→20:46)
[2021-05-09] MEDS: BLOOD SUGAR DIAGNOSTIC STRIP TEST SCH ×4 (06:43→20:46)
[2021-05-09 06:46] LABS: BASOPHILS % 0.6 % (0.0-2.0); EOSINOPHILS % 4.7 % (0.0-5.0); HEMATOCRIT. 32.8 % (36.0-48.0); HEMOGLOBIN. 10.7 g/dL (12.0-16.0); LYMPHOCYTES % 46.9 % (20.0-50.0); MEAN CORPUSCULAR HEMOGLOBIN 24.9 pg (28.0-32.0); MEAN CORPUSCULAR VOLUME 75.8 fL (81.0-99.0); MEAN PLATELET VOLUME 7.1 fl (7.4-10.4); MONOCYTES % 9.9 % (2.0-8.0); NEUTROPHILS % 37.9 % (40.0-76.0); PLATELET 387 x1000/uL (130-400); RED BLOOD CELL COUNT 4.32 mill/uL (4.2-5.4); RED CELL DISTRIBUTION WIDTH 14.4 % (11.6-14.6)
[2021-05-09 08:00] VITALS: BP 99/54
[2021-05-09] MEDS: HYDRALAZINE HCL 50MG TABLET PO SCH ×2 (09:00→21:00)
[2021-05-09] MEDS: LISINOPRIL 40MG TABLET PO SCH (09:00)
[2021-05-09] MEDS: AMLODIPINE 10MG TABLET PO SCH (09:00)
[2021-05-09] MEDS: ASPIRIN 81MG EC TABLET PO SCH (09:52)
[2021-05-09] MEDS: METHIMAZOLE 10MG TABLET PO SCH (09:52)
[2021-05-09 12:00] VITALS: BP 120/70
[2021-05-09 16:00] VITALS: BP 112/63
[2021-05-09 20:00] VITALS: BP 110/51
[2021-05-09] MEDS: ATORVASTATIN CALCIUM 40MG TABLET PO SCH (20:43)
[2021-05-09] MEDS: DIPHENHYDRAMINE 50MG/ML VIAL IV PRN (20:44)
[2021-05-10] VITALS: BP 118/61
[2021-05-10 04:00] VITALS: BP 115/68
[2021-05-10] MEDS: MORPHINE SULFATE 2 MG/ML CPJ (NOT FOR IM USE) IV PRN ×2 (05:50→09:57)
[2021-05-10] MEDS: INSULIN LISPRO 100 UNITS/ML SUBCUT SCH ×2 (05:51→12:11)
[2021-05-10] MEDS: BLOOD SUGAR DIAGNOSTIC STRIP TEST SCH ×2 (05:52→12:11)
[2021-05-10 06:13] LABS: BASOPHILS % 0.6 % (0.0-2.0); EOSINOPHILS % 4.4 % (0.0-5.0); HEMATOCRIT. 31.7 % (36.0-48.0); HEMOGLOBIN. 10.1 g/dL (12.0-16.0); LYMPHOCYTES % 47.1 % (20.0-50.0); MEAN CORPUSCULAR HEMOGLOBIN 24.7 pg (28.0-32.0); MEAN CORPUSCULAR VOLUME 77.5 fL (81.0-99.0); MEAN PLATELET VOLUME 7.1 fl (7.4-10.4); MONOCYTES % 10.3 % (2.0-8.0); NEUTROPHILS % 37.6 % (40.0-76.0); PLATELET 392 x1000/uL (130-400); RED BLOOD CELL COUNT 4.09 mill/uL (4.2-5.4); RED CELL DISTRIBUTION WIDTH 14.3 % (11.6-14.6)
[2021-05-10 08:00] VITALS: BP 111/62
[2021-05-10] MEDS: SODIUM CHLORIDE 0.9% 1,000 ML IV SCH (08:18)
[2021-05-10] MEDS: HYDRALAZINE HCL 50MG TABLET PO SCH (08:19)
[2021-05-10] MEDS: AMLODIPINE 10MG TABLET PO SCH (08:19)
[2021-05-10] MEDS: METHIMAZOLE 10MG TABLET PO SCH (09:15)
[2021-05-10] MEDS: ASPIRIN 81MG EC TABLET PO SCH (09:15)
[2021-05-10 12:00] VITALS: BP 118/74
== END 2021-05-10 13:41 | disposition home or self-care (01) | DRG 438 ==
LOC: ER 17:47 → EDBEDREQ 19:21 → 8WST 23:09 → EDBEDREQ 23:12 → EDBEDREQTM 23:12 → ENRESERV 23:54
PROVIDERS: ADMIT Internal Medicine; ATTEND Internal Medicine
DX: K85.90 Acute pancreatitis without necrosis or infection, unspecified (principal); N17.0 Acute kidney failure with tubular necrosis; E87.1 Hypo-osmolality and hyponatremia; J98.11 Atelectasis; K86.1 Other chronic pancreatitis; D69.6 Thrombocytopenia, unspecified; E05.90 Thyrotoxicosis, unspecified without thyrotoxic crisis or storm; E78.5 Hyperlipidemia, unspecified; N28.1 Cyst of kidney, acquired; E78.00 Pure hypercholesterolemia, unspecified; E11.9 Type 2 diabetes mellitus without complications; I11.9 Hypertensive heart disease without heart failure; E86.0 Dehydration; F41.9 Anxiety disorder, unspecified; I25.2 Old myocardial infarction; Z87.891 Personal history of nicotine dependence; Z90.710 Acquired absence of both cervix and uterus; Z79.899 Other long term (current) drug therapy; Z79.84 Long term (current) use of oral hypoglycemic drugs; Z79.4 Long term (current) use of insulin; Z90.49 Acquired absence of other specified parts of digestive tract; Z88.6 Allergy status to analgesic agent; Z87.440 Personal history of urinary (tract) infections
CPT/HCPCS: 36415; 71045; 74176; 76770; 80048; 80053; 80076; 80305; 80320; 81003; 82150; 82941; 82962; 83880; 84484; 85025; 86705; 86709; 86803; 87340; 93005; 99285; J1200; J1815; J2270; J7030; Q0162; G0480

== ENCOUNTER 2022-03-11 18:01 | Emergency (ER) | payer MEDICARE, MEDICAID ==
[~2022-03-11] VITALS: Ht 167.6 cm; Wt 75.0 kg
[~2022-03-11 18:01] MED LIST changes: +ASPI-1497 PO; +GABA800T97 PO; +HYDR-4135 PO; -IBUP-2029 MT; -IBUP-2030 PO; +METF-416 PO; +METH-372 PO; -METH10TA7 PO
[2022-03-11 18:11] VITALS: BP 180/92
== END 2022-03-11 18:58 | disposition left against medical advice (07) ==
LOC: ER 18:01
DX: Z53.21 Procedure and treatment not carried out due to patient leaving prior to being seen by health care provider (principal)